=== PATIENT | female | born 1940 | race Asian ===

== ENCOUNTER → 2023-11-01 15:25 | Outpatient (REF) | payer OTHER, SELFPAY | LOC: RAD 15:25 | PROVIDERS: ATTENDING PHYSICIAN Internal Medicine Geriatric Medicine | DX: E05.90 Thyrotoxicosis, unspecified without thyrotoxic crisis or storm (principal); E78.2 Mixed hyperlipidemia; R73.01 Impaired fasting glucose; E55.9 Vitamin D deficiency, unspecified; I10 Essential (primary) hypertension; E05.00 Thyrotoxicosis with diffuse goiter without thyrotoxic crisis or storm; Z23 Encounter for immunization; G62.9 Polyneuropathy, unspecified; Z13.89 Encounter for screening for other disorder; R80.9 Proteinuria, unspecified | CPT/HCPCS: 76775 ==